=== PATIENT | male | born 1960 | race Caucasian/White ===

== ENCOUNTER 2017-07-20 10:57 | Day surgery (SDC) | payer BC ==
[~2017-07-20] VITALS: Ht 175.3 cm; Wt 96.1 kg
[2017-07-20] VITALS (7 sets, daily range): BP systolic 115–135; BP diastolic 73–79; PULSE 66–70; RESP 14–18; Ht 175.3 cm; Wt 96.1 kg
--- NOTE | 2017-07-20 11:53 | RADRPT ---
PROCEDURE: XR Chest. CLINICAL INDICATION: Preoperative TECHNIQUE: Single portable view of the chest was obtained COMPARISON: None FINDINGS: The heart and mediastinum are within normal limits. There are mild bibasilar atelectatic changes. The lungs are otherwise clear. There is no pleural effusion or pneumothorax. RPTAT: AA IMPRESSION: Mild bibasilar atelectatic changes. .Mykel Ramírez MD, MD Date Time Electronically viewed and signed by .Mykel Ramírez MD, on 07/20/2017 11:53 .S/
[2017-07-20] MEDS ORDERED: LIDOCAINE 2%/EPI 30 ML INJ ONE (11:55)
[2017-07-20] MEDS ORDERED: BACITRACIN 0.9 GM OINT ONE (11:55)
[2017-07-20] MEDS ORDERED: TETRACAINE 0.5% 4 ML OPH ONE (11:55)
--- NOTE | 2017-07-20 12:00 | HPN ---
Date/Time of Note Date/Time of Note DATE: 07/20/17 TIME: 11:59 Interval H&P Admission Note Pt. seen H&P reviewed: No system changes VINAYAK CONRAD MD Jul 20, 2017 12:00
[2017-07-20] MEDS ORDERED: FENTAnyl 50 MCG/ML VIAL ONE (12:18)
[2017-07-20] MEDS ORDERED: MIDAZOLAM 1 MG/ML 2 ML INJ ONE (12:18)
[2017-07-20] MEDS ORDERED: morphine 2 MG INJ IV PRN (12:30)
[2017-07-20] MEDS ORDERED: ONDANSETRON 4 MG INJ IV PRN ×2 (12:30→13:00)
[2017-07-20] MEDS ORDERED: HYDROCODONE/APAP (5/325) TAB PO PRN (12:30)
[2017-07-20] MEDS ORDERED: HYDROmorphONE (0.2 MG/ML) 10ML SYG IV PRN ×3 (13:00)
[2017-07-20] MEDS ORDERED: OXYCODONE/ACETAMINOPHEN (5/325) TAB PO PRN ×2 (13:00)
--- NOTE | 2017-07-20 13:54 | OPR ---
Date/Time of Note Date/Time of Note DATE: 07/20/17 TIME: 13:50 Operative Report Free Text/Dictation Plastic Surgery Operative Report Preoperative diagnosis: right medial [place] basal cell CA Postoperative diagnosis: same Procedure: excision of right medial [place] basal cell CA and flap reconstruction Surgeon: una Siddiqui.: n/a Anesthesia: sedation EBL: min IV fluids: per flow sheet Findings:n/a Complications: none Dispo: home Indications for procedure:57 yo M presents for excision of a skin cancer and local flap reconstruction. The risks, benefits, alternatives of performing this procedure were discussed with the patient including the risks of bleeding, infection, wound healing problems, distortion of surrounding structures, nerve damage, changes in sensation, need for revision, and the patient states that they understand these risks and would like to proceed with the procedure. All questions were answered, no guarantees were given with regards to the outcome of this procedure. Skin cancer excision Description of procedure: The patient was brought to the operating room at [facility] where sedation was induced. The circumference of the lesion was marked with a marking pen. The skin was prepped with alcohol and then a total of 8cc of 1% licodaine with 1:200,000 epi were injected. Next , the patient was prepped and draped in usual sterile fashion. The 15 blade was then used to excise around the circumference of the lesion, and excise it from its base.. This was sent for pathology. Hemostasis was achieved with electrocautery. A short stitch was placed superior and long stitch was placed lateral. Pathology returned with a positive lateral margin, and therefore an additional specimen was taken from this region. This returned negative. Size of the specimen was 1.5cm. The wound was inspected, and in order to close without tension and avoid distorting the surrounding structures, a medially based glabellar flap was planned. This was marked with the marking pen. The flap was then incised with a 15 blade, and was undermined with the cautery until adequate movement had been achieved. It was then rotated into position. It sat in place without undue tension. Therefore hemostasis was achieved with electrocautery, and then the incision was closed with 5-0 vicryl, 5-0 nylon, and 6-0 fast gut. The final size of the flap was 4.5x3cm. The patient tolerated procedure well, there were no complications, follow-up information and wound care instructions were given VINAYAK CONRAD MD Jul 20, 2017 13:54
== END 2017-07-20 14:55 | disposition home or self-care (01) ==
LOC: SDS 10:57
PROVIDERS: ATTEND Surgery Plastic and Reconstructive Surgery
DX: Z85.840 Personal history of malignant neoplasm of eye (principal)
CPT/HCPCS: 14060; 71010; 88307; 88331; J2250; J3010; Z7512; Z7610

== ENCOUNTER 2017-10-05 10:33 | Day surgery (SDC) | payer BC ==
[~2017-10-05] VITALS: Ht 175.3 cm; Wt 95.2 kg
[2017-10-05] MEDS ORDERED: METF500T4 PO (11:24)
[2017-10-05] MEDS ORDERED: ALLO300T2 PO (11:24)
[2017-10-05 11:29] VITALS: Ht 175.3 cm; Wt 95.2 kg
[2017-10-05 12:26] VITALS: BP 135/81; PULSE 69; RESP 18
--- NOTE | 2017-10-05 12:49 | OPPN ---
Date/Time of Note Date/Time of Note DATE: 10/05/17 TIME: 12:48 Proc Note GI Procedure Date 10/05/17 Indication: screening/surveillance Pre-procedure Diagnosis Screening colonoscopy Post-procedure Diagnosis Extremely poor prep endoscopy done up to distal transverse colon Procedure Performed: Colonoscopy Surgeon see signature line [employer] none Anesthesia Type: moderate sedation Tourniquet Time none EBL none Transfusion required none Biopsy 1: None Grafts/Implants none Tubes/Drains none Complication(s) none Disposition: PACU Procedure Description Dictated DORIAN SWEENEY MD Oct 05, 2017 12:49
[2017-10-05] MEDS ORDERED: FENTAnyl 50 MCG/ML VIAL ONE (12:56)
[2017-10-05] MEDS ORDERED: MIDAZOLAM 1 MG/ML 2 ML INJ ONE ×2 (12:56)
[2017-10-05 13:10] VITALS: BP 108/74; PULSE 60; RESP 20
--- NOTE | 2017-10-05 19:34 | GILP ---
DATE OF PROCEDURE: 10/05/2017 PROCEDURE PERFORMED: Colonoscopy with biopsy. INDICATION: A 57-year-old male undergoing this procedure for colon cancer screening. The risks of the procedure, related and unrelated complications, anesthetic sedative risks, alternatives discusse d and informed consent was obtained. DESCRIPTION OF PROCEDURE: The patient was brought to the GI lab, sedated with Versed 4 mg, fentanyl 100 mg. After appropriate sedation, scope was passed with much ease into rectum and he had solid s tool. Scope was advanced all the way up to proximal distal transverse colon and since he was full o f stool decided to terminate the procedure. Scope was removed with good patient tolerance. IMPRESSION: Poor prep. PLAN: Patient's procedure needs to be repeated within 1 year. Dictated By: DORIAN GARNER/MARTHA Conf#: [id number] DID#: [id number]
== END 2017-10-05 13:11 | disposition home or self-care (01) ==
LOC: GIL 10:33
PROVIDERS: ATTEND Internal Medicine Gastroenterology
DX: Z12.11 Encounter for screening for malignant neoplasm of colon (principal); E11.9 Type 2 diabetes mellitus without complications
CPT/HCPCS: 45330; 82962; J2250; J3010; Z7610

== ENCOUNTER 2018-11-09 06:11 | Day surgery (SDC) | END 2018-11-09 10:31 | disposition home or self-care (01) ==